=== PATIENT | female | born 1980 | race African-American/Black ===

== ENCOUNTER 2022-03-12 10:07 | Outpatient (RCR) | payer OTHER, SELFPAY ==
--- NOTE | 2022-03-12 13:42 | PTOPEVAL1 ---
Assessment and note entered by Adithya Haile, PT Evaluation Information Assessment Status Evaluation Diagnosis recent acute back strain Onset chart states 01/22/22 patient reports it happened in December, Subjective Information Patient reports she hurt her back at work, [employer]. She felt a pull but was okay and then 3-4 days later she could barely move. At urgent care she was given muscle relaxers that did not work and then saw her primary physician who gave her IBU and another medication she can not remember off the top of her head. She reports she was unable to return to work for over a month, but now can move around for the most part, but will still have catches and pain when she moves unexpectedly or leans over to the L side. She is have trouble sleeping. Switching to her couch from her bed as her mattress is a pillow top and too soft. Reported Pain Level Pain Score 5: Self Report Assessment PT Clinical Summary Mary is a 41 year old female coming into the clinic today with a diagnosis of recent acute back strain. She reports it happened at work. She presents with tenderness and guarding over the L back, pain, and weakness in her core and KEVIN hips. Physical therapy is going to work on loosening the back and pain control with manual therapy and modalities. Education and implementation on walking program and strengthening of core and LE to reduce chance of recurrent back issues. Plan of Care Interventions Electrical Stimulation,Gait Training,Hot Pack/Cold Pack,Manual Therapy,Mechanical Traction,Neuro Re- education,Patient/Caregiver Education,Therapeutic Activities,Therapeutic Exercise,Ultrasound PT Services Indicated Yes Treatment Frequency and 2x/wk for 3 weeks Duration These treatments will address the objective and functional deficits as defined above. The patient will be advanced safely and appropriately in order for the patient to progress towards his/her prior level of function. Additional exercises will be introduced and as well as a comprehensive home exercise program upon discharge, if needed, ?to ensure carryover of functional gains achieved in the clinic. This treatment plan has been reviewed and agreement upon by the patient.
--- NOTE | 2022-03-20 16:20 | PCPTNOTE ---
Patient did not show up for scheduled appointment this date.
--- NOTE | 2022-03-24 11:03 | PCPTNOTE ---
Patient did not show up for scheduled appointment this date. Called and spoke with Pt. She apologized because she forgot about the appointment due to not having a reminder of her appointment today. Reminded Pt of upcoming appointment on 03/26/22 @10:45. Pt stated she would be there. This is Pt's second N/S.
--- NOTE | 2022-03-26 11:13 | PCPTNOTE ---
Patient did not show up for scheduled appointment this date. This is patient's third time not showing up for Physical Therapy session. Patient was called regarding today's missed visit and did not answer.
--- NOTE | 2022-03-30 15:56 | PCPTNOTE ---
Patient did not show up for scheduled appointment this date. Called patient and she states she has been missing her appts because her grandmother is sick and she has been helping her out. Patient was told her next appt is at 8 o'clock and she states she will be there.
--- NOTE | 2022-04-02 08:43 | PTOPDC ---
Assessment and note entered by Adithya Haile, PT Evaluation Information Assessment Status Discharge - Pt Not Presen Diagnosis recent acute back strain Onset chart states 01/22/22 patient reports it happened in December, maybe January Subjective Information Patient reports she hurt her back at work, [employer]. She felt a pull but was okay and then 3-4 days later she could barely move. At urgent care she was given muscle relaxers that did not work and then saw her primary physician who gave her IBU and another medication she can not remember off the top of her head. She reports she was unable to return to work for over a month, but now can move around for the most part, but will still have catches and pain when she moves unexpectedly or leans over to the L side. She is have trouble sleeping. Switching to her couch from her bed as her mattress is a pillow top and too soft. Assessment PT Clinical Summary Patient came in for an initial evaluation on March 12, 2022 and then no showed no called for 5 consecutive appointments. Patient was called numerous time to make sure she knew her schedule and on the 30 of March phone call she told the physical therapist she would for sure by at the one today . Patient discharged per non-participation. Plan of Care PT Services Indicated No
== END 2022-04-08 14:32 | disposition home or self-care (01) ==
LOC: ANHPT 10:07
PROVIDERS: PCP Internal Medicine Gastroenterology; Visit Provider Internal Medicine Gastroenterology
DX: M54.50 Low back pain, unspecified (principal)
CPT/HCPCS: 97110; 97161; 99199

== ENCOUNTER 2024-03-29 14:48 | Outpatient (CLI) | payer OTHER, SELFPAY ==
--- NOTE | ~2024-03-29 | MM_ITS ---
EXAMINATION: MM screening ross BI w edgardo HISTORY: Screening mammogram TECHNIQUE: Craniocaudal and mediolateral oblique 3-D tomosynthesis images were obtained and synthetic 2-D images were generated. CAD analysis was submitted and interpreted. COMPARISON: No prior mammogram is available for comparison at this institution. BREAST PARENCHYMAL COMPOSITION:Not Dense. There are scattered areas of fibroglandular density. FINDINGS: There is a small mass at the outer, lower right breast. No suspicious mass or distortion le ft breast. No suspicious microcalcifications. IMPRESSION: Small lower, outer right breast mass. Spot compression views and ultrasound are recommended for furt her evaluation. BI-RADS Category 0: Incomplete: Needs additional imaging evaluation. Reviewed, dictated and finalized at location . SECTION SUPERVISOR IMPRESSION: Small lower, outer right breast mass. Spot compression views and ultrasound ar e recommended for further evaluation. BI-RADS Category 0: Incomplete: Needs additional imaging evaluation.
== END 2024-03-29 14:49 | disposition home or self-care (01) ==
LOC: ANHIMG 14:51
PROVIDERS: PCP Internal Medicine Gastroenterology; Visit Provider Obstetrics & Gynecology
DX: Z12.31 Encounter for screening mammogram for malignant neoplasm of breast (principal); N63.13 Unspecified lump in the right breast, lower outer quadrant
CPT/HCPCS: 77063; 77067

== ENCOUNTER 2024-12-07 10:01 | Outpatient (CLI) | payer OTHER, SELFPAY ==
--- NOTE | ~2024-12-07 | MMUS_ITS ---
EXAMINATION: MM diagnostic ross RT w edgardo, US breast RT limited INDICATION: 44-year old female; BI-RADS 3, short-term follow-up on probably benign right breast mass. COMPARISON: 06/09/2024 TECHNIQUE: Digital breast tomosynthesis True lateral and spot compression CC and MLO views of the RIG HT breast were obtained with computer-aided detection to assist in interpretation of the study. MAMMOGRAM FINDINGS: There are scattered areas of fibroglandular density. The circumscribed mass of concern in the Inferior right breast is unchanged. No new suspicious mass, architectural distortion of abnormal calcification seen. Ultrasound was performed for further evaluat ion. RIGHT BREAST ULTRASOUND FINDINGS: Targeted evaluation of the area of concern was completed. At 6:00, 4 cm from the nipple a 0.3 x 0.2 x 0.6 cm simple cyst is reidentified and has not significantly changed in the interval. IMPRESSION: Benign RIGHT breast cyst which correlates to mammographic finding is unchanged. No further investigat ion necessary. RECOMMENDATION: Annual screening bilateral mammography in 6 months. BI-RADS 2, BENIGN Reviewed, dictated and finalized at location B. IMPRESSION: Benign RIGHT breast cyst which correlates to mammographic finding is unchanged. No further investigation necessary. RECOMMENDATION: Annual screening bilateral mammography in 6 months. BI-RADS 2, BENIGN
--- OUTSIDE RECORDS SUMMARY | 2024-12-07 10:06 | XMS_ITS | Data Portability ---
Author Organization [place] [facility] [employer], Main Office Address [address] [place] [address] Care Team Providers Care Scarfer Operator Name Role Phone JENNA CAMACHO Primary Care Provider [phone] JENNA CAMACHO Referring Provider Assessment Encounter Date Assessment Date Assessment LastModified by Organization Details LastModified Time 02/24/2023 02/24/2023 42-year-old patient presents today with right knee pain that started about a month ago when she had a fall. Since then she has been experiencing discomfort with daily activities and swelling. She has tried ibuprofen, icing, and resting. She states that it does feel little better since the initial injury, But she experiences swelling after being active during the day. She denies any issues with this knee in the past. Review of systems per patient questionnaire Imaging: X-rays reviewed show no acute bony abnormality, no fracture. Preserved joint spaces throughout. Physical exam: Nonantalgic gait. 1+ effusion. No tenderness with palpitation. Range of motion 0-150 without crepitus. Negative Jasmin's. Stable Cari's with firm endpoint. Stable posterior drawer, varus and valgus stress. Normal patellar mobility. We will start with a course of physical therapy to help stretch and strengthen her knee. We will also order meloxicam for anti-inflammator y therapy. We will see her back in 4-6 weeks to check her progress. Not available 02/24/2023 11:55:55 04/14/2023 04/14/2023 42-year-old patient presents today for follow up of right knee pain that started after she had a fall. At her last appointment we ordered physical therapy and meloxicam. Today she states the knee is doing much better. She has minimal pain in the knee but it still swells occasionally. She takes the meloxicam daily but has not yet started physical therapy. Her first appointment is scheduled for May.20. Physical exam: Nonantalgic gait. Minimal effusion. No tenderness with palpitation. Range of motion 0-150 without crepitus. Negative Jasmin's. Stable Cari's with firm endpoint. Stable posterior drawer, varus and valgus stress. Normal patellar mobility. We will still have her attend the course of physical therapy to help stretch and strengthen her knee. We will also order a refill of her meloxicam. We will see her back in 3 month after the therapy to check her progress. Not available 04/14/2023 15:36:16 Plan of Treatment Reminders Order Date Submit Date Provider Last Modified By Organization Details Last Modified Time Details Appointments None recorded. Lab None recorded. Referral physical therapist referral - [facility] 2022 023 [facility], [address], [place], [address], 4 17:05:49 Procedures None recorded. Surgeries None recorded. Imaging None recorded. Medication Orders Mobic 15 mg tablet 2022 023 [facility], [address] [place] [address], [id number], 3 16:41:13 Mobic 15 mg tablet 2022 023 [facility], [address] [place] [address], [id number], 3 13:01:04 Patient TargetsNo targets recorded. Patient InstructionsNo instructions recorded. Reason for Referral Physical Therapist Referral for Pain of right knee joint [facility]AL AND TREAT Referring Physician: Debby Olivares, Orthopedic Surgery, Encounter Date: 02/24/2023 Results Created Date Observation Date Name Description Value Unit Range Abnormal Flag Note LastModifiedBy Organization Detail LastModifiedTime 02/17/20 23 02/01/2023 XR, knee, 3 view No observ ation record ed. [email or web address] Not Available 07/2022 14:12:20 Result Notes None recorded. Problems Name Problem SNOMED Code Status Onset Date Resolution Date Notes Provider Name and Address Organization Details Recorded Time Pain of right knee joint 928821717831359 Active 2022 Zulema Woodson , ATC L null, [place] [facility] 11:42:00 Problem Notes None recorded. Medical Equipment None Reported. Allergies No known drug allergies Medications Name Sig Start Date Stop Date Status Note LastModified by Organization Details LastModified Time cyclobenzapri ne 10 mg tablet TAKE 1 TABLET BY MOUTH AT BEDTIME NEEDED active Not Available Not Available No t Available prednisone 10 mg tablet TAKE 4 TABLETS BY MOUTH ON DAYS 1-3, THREE TABLETS ON DAYS FOUR TO FIVE, TWO TABLETS DAY SIX AND ONE TABLET DAY SEVEN DIRECTED active Not Available Not Available No t Available azithromycin 250 mg tablet TAKE 2 TABLETS BY MOUTH ON DAY 1, THEN TAKE 1 TABLET DAILY ON DAYS 2-5 active Not Available Not Available No t Available ibuprofen 800 mg tablet TAKE ONE TABLET BY MOUTH THREE TIMES DAILY WITH MEALS active Not Available Not Available No t Available fluconazole 150 mg tablet TAKE ONE TABLET BY MOUTH A SINGLE DOSE active Not Available Not Available No t Available benzonatate 200 mg capsule TAKE ONE CAPSULE BY MOUTH THREE TIMES DAILY NEEDED FOR COUGH active Not Available Not Available No t Available meloxicam 15 mg tablet TAKE ONE TABLET BY MOUTH EVERY DAY active Not Available Not Available No t Available terconazole 0.8 % vaginal cream USE DIRECTED active Not Available Not Available No t Available pantoprazole 40 mg tablet,delaye d release TAKE ONE TABLET BY MOUTH EVERY DAY BEFORE A MEAL FOR STOMACH active Not Available Not Available No t Available montelukast 10 mg tablet TAKE ONE TABLET BY MOUTH EVERY DAY active Not Available Not Available No t Available fluticasone propionate 50 mcg/actuation nasal spray,suspens ion SPRAY TWO PUFFS IN EACH NOSTRIL EVERY DAY active Not Available Not Available No t Available amoxicillin 875 mg-potassium clavulanate 125 mg tablet TAKE ONE TABLET TWICE DAILY UNTIL ALL TAKEN active Not Available Not Available No t Available hydrochloroth iazide 12.5 mg tablet TAKE ONE TABLET BY MOUTH EVERY DAY FOR BLOOD PRESSURE & FLUID RETENTION active Not Available Not Available No t Available Vitals Date Recorded Body height Body mass index (BMI) Body weight Provider Name and Address Organization Details Last Updated DateTime 02/24/2023 162.56 cm 34.3 kg/m2 38234.47 g Zulema Calvertkalpana, ATC L [employer] 02/24/2023 11:40:07 Date Recorded Body height Body mass index (BMI) Body weight Provider Name and Address Organization Details Last Updated DateTime 04/14/2023 162.56 cm 31.8 kg/m2 60845.59 g Sravanthi GonzálesIVAN jade [employer] 04/14/2023 15:17:15 Social History Question Answer Notes LastModified by [employer] Details LastModified Time Tobacco Smoking Status Current Every Day Smoker Zulema Chintan, ATC L null, [employer] 02/24/2023 11:41:24 How Much Tobacco Do You Smoke? 1 PPD Information not available 02/24/2023 Sex: Unknown Functional Status Question Answer Note LastModified by [employer] Details LastModified Time What is your level of alcohol consumption? Occasional Information not available 02/24/2023 Mental Status None recorded. Family History Nothing Reported. Medical History No medical history recorded. Gynecological HistoryNo gynecological history recorded. Obstetrics History GPAL:G 0 P 0 0 0 0 Past Encounters Encounter ID Performer Location Encounter Start Date Encounter Closed Date Diagnosis/Indication Diagnosis SNOMED-CT Code Diagnosis ICD10 Code Diagnosis Note [id number] Idris Bryan MD [facility] [place] [address] [place] [address] 02/24/2023 11:26:52 02/24/2023 11:58:32 Pain of right knee joint 9335871781 94737 M25.437 [id number] Idris Bryan MD [facility] [place] [address] [place] [address] 04/14/2023 15:15:03 04/14/2023 15:31:45 Pain of right knee joint 1173290111 31825 M25.561 Health Concerns Section Related Observation LastModified by Organization Detai ls LastModified Time None Recorded Concern Status LastModified by Organization Details LastModified Time None Recorded Advance Directives Directive None Recorded Payers Insurance Date Sequence Insurance Name Policy Number Policy Butts Covered Member ID Butts Member ID Guarantor Name 07/11/2023 1 [facility] (MEDICAID REPLACEMENT - HMO) [id number] Mary Ramirez [id number] Mary Ramirez [facility] Episode No OBEpisode recorded.
--- OUTSIDE RECORDS SUMMARY | 2024-12-07 10:06 | XMS_ITS | Data Portability ---
Author Organization RDAHA MELODYGonzales Tavarez Address [address] [place] [address] Assessment No assessment recorded. Plan of Treatment Reminders Order Date Submit Date Provider Last Modified By Organization Details Last Modified Time Details Appointments None recorded . Lab CMP, serum or plasma 2023 [facility], [address], [address], [place], [address], 4 08:28:43 lipid panel, serum 2023 024 [facility], [facility] [address], [address], [place], [address], 4 08:28:42 HbA1c (hemoglo bin A1c), blood 2023 024 [facility], [facility] [address], [address], [place], [address], 4 06:25:26 CBC 2023 024 [facility], [address] [employer] [address], [address], [place], [address], 4 08:28:45 urinalys is, dipstick 2022 023 [facility] In-Office Order, Internal Use Only DO Not Attach Compendium DO Not Attach Compendium, Do Not Delete/merge, [id number] 3 12:34:42 Referral physical therapis t referral 2021 022 [facility] (Outpatient [facility] Therapy), [address] [place], [address], 2 08:21:39 Procedures None recorded . Surgeries None recorded . Imaging XR, knee, 3 view [address] ([facility]), [address] [place], [address], 3 11:49:26 Medication Orders hydrochl orothiaz nakia 12.5 mg tablet 2023 024 [facility], [address] [place] [address], [id number], 5 10:08:32 fluticas one propiona te 50 mcg/actu ation nasal spray,tate spension 2022 023 [facility], [address] [place] [address], [id number], 4 16:19:49 monteluk ast 10 mg tablet 2022 023 [facility], [address] [place] [address], [id number], 4 15:21:46 ibuprofe n 800 mg tablet 2022 023 [facility], [address] [place] [address], [id number], 4 15:57:50 ibuprofe n 600 mg tablet 2021 022 [facility], [address] [place] [address], [id number], 4 15:57:42 diazepam 5 mg tablet 2021 022 [facility], [address] [place], [place], [id number], 15:57:32 Patient TargetsNo targets recorded. Patient Instructions Encounter Date Encounter Id Patient Instructions Last Modified By Organization Details Last Modified Time 02/04/2022 [id number] back care and preventing injuries: care instructions [email or web address] Not available 02/04/2022 15:57:19 01/27/2023 [id number] allergies: care instructions [email or web address] Not available 01/27/2023 13:13:46 managing your allergies: care instructions [email or web address] Not available 01/27/2023 13:13:46 02/24/2024 [id number] allergies: care instructions [email or web address] Not available 02/24/2024 17:01:44 A healthy lifestyle: care instructions [email or web address] Not available 02/24/2024 18:01:24 Reason for Referral Physical Therapist Referral for Low back pain Recent acute back strain Referring Physician: Dutch Prakash, Internal Medicine, Encounter Date: 02/04/2022 Results Created Date Observation Date Name Description Value Unit Range Abnormal Flag Note LastModifiedBy Organization Detail LastModifiedTime 02/26/2002/26/2022 LIPID PANEL cholesterol, total 174 mg/dL 100-19 9 Not Available [facility] ([facility]) [address] [place], [address], 02/26/2022 08:16:02 02/26/2002/26/2022 LIPID PANEL triglyceride s 104 mg/dL 0-149 Not Available [facility] ([facility]) [address] [place], [address], 02/26/2022 08:16:02 02/26/2002/26/2022 LIPID PANEL HDL cholesterol 59 mg/dL >39 Not Available [facility] ([facility]) [address] [place], [address], 02/26/2022 08:16:02 02/26/20 22 02/26/2022 LIPID PANEL VLDL cholesterol margarita 19 mg/dL 5-40 Not Available [facility] ([facility]) [address] [facility], [place], [address], 02/26/2022 08:16:02 02/26/20 22 02/26/2022 LIPID PANEL LDL chol calc ([facility]) 96 mg/dL 0-99 Not Available [facility] ([facility]) [address] [place], [address], 02/26/2022 08:16:02 02/26/20 22 02/26/2022 COMP. METAB OLIC PANEL (14) glucose 77 mg/dL 70-99 Ple ase note refer ence inter janice harkins e Not Available [facility] ([facility]) [address] [facility], [place], [address], 02/26/2022 08:16:02 02/26/20 22 02/26/2022 COMP. METAB OLIC PANEL (14) BUN 11 mg/dL 6-20 Not Available [facility] ([facility]) [address] [place], [address], 02/26/2022 08:16:02 02/26/2002/26/2022 COMP. METAB OLIC PANEL (14) creatinine 1.00 mg/dL 0.57-1 .00 Not Available [facility] ([facility]) [address] [place], [address], 02/26/2022 08:16:02 02/26/2002/26/2022 COMP. METAB OLIC PANEL (14) eGFR 73 mL/mi n/1.7 3 >59 Not Available [facility] ([facility]) [address] [place], [address], 02/26/2022 08:16:02 02/26/20 22 02/26/2022 COMP. METAB OLIC PANEL (14) BUN/creatini ne ratio 11 9-23 Not Available [facility] ([facility]) [address] [place], [address], 02/26/2022 08:16:02 02/26/20 22 02/26/2022 COMP. METAB OLIC PANEL (14) sodium 136 mmol/ L 134-14 4 Not Available [facility] ([facility]) [address] [facility], [place], [address], 02/26/2022 08:16:02 02/26/20 22 02/26/2022 COMP. METAB OLIC PANEL (14) potassium 4.0 mmol/ L 3.5-5. 2 Not Available [facility] ([facility]) [address] [facility], [place], [address], 02/26/2022 08:16:02 02/26/2002/26/2022 COMP. METAB OLIC PANEL (14) chloride 98 mmol/ L 96-106 Not Available [facility] ([facility]) [address] [facility], [place], [address], 02/26/2022 08:16:02 02/26/2002/26/2022 COMP. METAB OLIC PANEL (14) carbon dioxide, total 25 mmol/ L 20-29 Not Available [facility] ([facility]) [address] [facility], [place], [address], 02/26/2022 08:16:02 02/26/2002/26/2022 COMP. METAB OLIC PANEL (14) calcium 9.4 mg/dL 8.7-10 .2 Not Available [facility] ([facility]) [address] [place], [address], 02/26/2022 08:16:02 02/26/2002/26/2022 COMP. METAB OLIC PANEL (14) protein, total 8.2 g/dL 6.0-8. 5 Not Available [facility] ([facility]) [address] [place], [address], 02/26/2022 08:16:02 02/26/2007 0302/26/2022 COMP. METAB OLIC PANEL (14) albumin 3.9 g/dL 3.8-4. 8 Not Available [facility] ([facility]) [address] [place], [address], 02/26/2022 08:16:02 02/26/20 22 02/26/2022 COMP. METAB OLIC PANEL (14) globulin, total 4.3 g/dL 1.5-4. 5 Not Available [facility] ([facility]) [address] [facility], [place], [address], 02/26/2022 08:16:02 02/26/2002/26/2022 COMP. METAB OLIC PANEL (14) A/G ratio 0.9 1.2-2. 2 below low normal Not Available [facility] ([facility]) [address] [place], [address], 02/26/2022 08:16:02 02/26/20 22 02/26/2022 COMP. METAB OLIC PANEL (14) bilirubin, total 0.4 mg/dL 0.0-1. 2 Not Available [facility] ([facility]) [address] [place], [address], 02/26/2022 08:16:02 02/26/20 22 02/26/2022 COMP. METAB OLIC PANEL (14) alkaline phosphatase 59 IU/L 44-121 Not Available [facility] ([facility]) [address] [place], [address], 02/26/2022 08:16:02 02/26/20 22 02/26/2022 COMP. METAB OLIC PANEL (14) AST (SGOT) 22 IU/L 0-40 Not Available [facility] ([facility]) [address] [place], [address], 02/26/2022 08:16:02 02/26/20 22 02/26/2022 COMP. METAB OLIC PANEL (14) ALT (SGPT) 16 IU/L 0-32 Not Available [facility] ([facility]) [address] [facility], [place], [address], 02/26/2022 08:16:02 02/26/2002/26/2022 CBC, PLATE LET, NO DIFFE RENTI AL WBC 6.3 x10e3 /uL 3.4-10 .8 Not Available [facility] ([facility]) [address] [facility], [place], [address], 02/26/2022 08:16:03 02/26/2002/26/2022 CBC, PLATE LET, NO DIFFE RENTI AL RBC 4.28 x10e6 /uL 3.77-5 .28 Not Available [facility] ([facility]) [address] [facility], [place], [address], 02/26/2022 08:16:03 02/26/2002/26/2022 CBC, PLATE LET, NO DIFFE RENTI AL hemoglobin 12.4 g/dL 11.1-1 5.9 Not Available [facility] ([facility]) [address] [facility], [place], [address], 02/26/2022 08:16:03 02/26/2002/26/2022 CBC, PLATE LET, NO DIFFE RENTI AL hematocrit 38.3 % 34.0-4 6.6 Not Available [facility] ([facility]) [address] [facility], [place], [address], 02/26/2022 08:16:03 02/26/2002/26/2022 CBC, PLATE LET, NO DIFFE RENTI AL MCV 90 fL 79-97 Not Available [facility] ([facility]) [address] [place], [address], 02/26/2022 08:16:03 02/26/2002/26/2022 CBC, PLATE LET, NO DIFFE RENTI AL MCH 29.0 pg 26.6-3 3.0 Not Available [facility] ([facility]) [address] [facility], [place], [address], 02/26/2022 08:16:03 02/26/2002/26/2022 CBC, PLATE LET, NO DIFFE RENTI AL MCHC 32.4 g/dL 31.5-3 5.7 Not Available [facility] ([facility]) [address] [facility], [place], [address], 02/26/2022 08:16:03 02/26/2002/26/2022 CBC, PLATE LET, NO DIFFE RENTI AL RDW 13.1 % 11.7-1 5.4 Not Available [facility] ([facility]) [address] [facility], [place], [address], 02/26/2022 08:16:03 02/26/2002/26/2022 CBC, PLATE LET, NO DIFFE RENTI AL platelets 406 x10e3 /uL 150-45 0 Not Available [facility] ([facility]) [address] [facility], [place], [address], 02/26/2022 08:16:03 02/26/2002/26/2022 VITAM IN D, 25-HY DROXY vitamin D, 25-hydroxy 37.7 NG/mL 30.0-1 00.0 Vitam in D defic iency has been defin ed by the Insti tute of Medic ine and an Endoc rine Socie ty pract ice guide line as a level of serum 25-OH vitam in D less than 20 ng/mL (1,2) . The Endoc rine Socie ty [facility] e vitam in D insuf ficie ncy as a level betwe en 21 and 29 ng/mL (2). 1. IOM (Inst itute of Medic ine). 2010. Dieta ry refer ence intak es for calci um and D. Gustabo elias [place]: The [facility] Press . 2. Holic k [place], [place], Pili off-F willard i MCCRARY, et al. Evalu ation , treat ment, and preve ntion of vitam in D defic iency : an Endoc rine Socie ty clini margarita pract ice guide line. JCEM. 2010; 96(7) :1911 -30. Not Available [facility] ([facility]) [address], [place], [address], 02/26/2022 08:16:04 03/03/2003/03/2023 urina lysis , dipst ick Leukocytes Negati ve Not Available In-Office Order Internal Use Only DO Not Attach Compendium DO Not Attach Compendium, Do Not Delete/merge, 03/03/2023 12:02:00 03/03/2003/03/2023 urina lysis , dipst ick Nitrite negati ve Not Available In-Office Order Internal Use Only DO Not Attach Compendium DO Not Attach Compendium, Do Not Delete/merge, 03/03/2023 12:02:00 03/03/2003/03/2023 urina lysis , dipst ick Urobilinogen .2 Not Available In-Of fice Order Internal Use Only DO Not Attach Compendium DO Not Attach Compendium, Do Not Delete/merge, 03/03/2023 12:02:00 03/03/2003/03/2023 urina lysis , dipst ick Protein 100 Not Available In-Office Order Internal Use Only DO Not Attach Compendium DO Not Attach Compendium, Do Not Delete/merge, [id number] 03/03/2023 12:02:00 03/03/2003/03/2023 urina lysis , dipst ick pH 5.5 Not Available In-Office Order Internal Use Only DO Not Attach Compendium DO Not Attach Compendium, Do Not Delete/merge, [id number] 03/03/2023 12:02:00 03/03/2003/03/2023 urina lysis , dipst ick Blood Non-He molyze d: Trace Not Available In-Office Order Internal Use Only DO Not Attach Compendium DO Not Attach Compendium, Do Not Delete/merge, [id number] 03/03/2023 12:02:00 03/03/2003/03/2023 urina lysis , dipst ick Specific [place] 1.025 Not Available In-Off ice Order Internal Use Only DO Not Attach Compendium DO Not Attach Compendium, Do Not Delete/merge, [id number] 03/03/2023 12:02:00 03/03/2003/03/2023 urina lysis , dipst ick Ketone Negati ve Not Available In-Office Order Internal Use Only DO Not Attach Compendium DO Not Attach Compendium, Do Not Delete/merge, [id number] 03/03/2023 12:02:00 03/03/2003/03/2023 urina lysis , dipst ick Bilirubin Negati ve Not Available In-Office Order Internal Use Only DO Not Attach Compendium DO Not Attach Compendium, Do Not Delete/merge, [id number] 03/03/2023 12:02:00 03/03/2003/03/2023 urina lysis , dipst ick Glucose Negati ve Not Available In-Office Order Internal Use Only DO Not Attach Compendium DO Not Attach Compendium, Do Not Delete/merge, [id number] 03/03/2023 12:02:00 03/03/2003/03/2023 urina lysis , dipst ick Appearance Slight ly Cloudy Not Available In-Office Order Internal Use Only DO Not Attach Compendium DO Not Attach Compendium, Do Not Delete/merge, [id number] 03/03/2023 12:02:00 03/03/2003/03/2023 urina lysis , dipst ick Color Yellow Not Available In-Office Order Internal Use Only DO Not Attach Compendium DO Not Attach Compendium, Do Not Delete/merge, [id number] 03/03/2023 12:02:00 03/30/20 24 03/31/2024 HEMOG LOBIN A1C hemoglobin A1C 5.6 % 4.8-5. 6 Predi abete s: 5.7 - 6.4 Diabe yuliet: >6.4 Glyce malathi contr ol for adult s with diabe yuliet: <7.0 Not Available [facility] ([facility]) [address] [facility], [place], [address], 03/31/2024 06:25:26 03/30/20 24 03/31/2024 LIPID PANEL cholesterol, total 169 mg/dL 100-19 9 Not Available [facility] ([facility]) [address] [place], [address], 03/31/2024 08:28:42 03/30/20 24 03/31/2024 LIPID PANEL triglyceride s 114 mg/dL 0-149 Not Available [facility] ([facility]) [address] [place], [address], 03/31/2024 08:28:42 03/30/20 24 03/31/2024 LIPID PANEL HDL cholesterol 54 mg/dL >39 Not Available [facility] ([facility]) [address] [place], [address], 03/31/2024 08:28:42 03/30/20 24 03/31/2024 LIPID PANEL VLDL cholesterol margarita 20 mg/dL 5-40 Not Available [facility] ([facility]) [address] [place], [address], 03/31/2024 08:28:42 03/30/20 24 03/31/2024 LIPID PANEL LDL chol calc ([facility]) 95 mg/dL 0-99 Not Available [facility] ([facility]) [address] [place], [address], 03/31/2024 08:28:42 03/30/20 24 03/31/2024 COMP. METAB OLIC PANEL (14) glucose 59 mg/dL 70-99 below low normal Not Available [facility] ([facility]) [address] [place], [address], 03/31/2024 08:28:43 03/30/20 24 03/31/2024 COMP. METAB OLIC PANEL (14) BUN 18 mg/dL 6-24 Not Available [facility] ([facility]) [address], [place], [address], 03/31/2024 08:28:43 03/30/20 24 03/31/2024 COMP. METAB OLIC PANEL (14) creatinine 0.82 mg/dL 0.57-1 .00 Not Available [facility] ([facility]) [address] [place], [address], 03/31/2024 08:28:43 03/30/20 24 03/31/2024 COMP. METAB OLIC PANEL (14) eGFR 92 mL/mi n/1.7 3 >59 Not Available [facility] ([facility]) [address] [place], [address], 03/31/2024 08:28:43 03/30/20 24 03/31/2024 COMP. METAB OLIC PANEL (14) BUN/creatini ne ratio 22 9-23 Not Available [facility] ([facility]) [address] [facility], [place], [address], 03/31/2024 08:28:43 03/30/20 24 03/31/2024 COMP. METAB OLIC PANEL (14) sodium 137 mmol/ L 134-14 4 Not Available [facility] ([facility]) [address] [place], [address], 03/31/2024 08:28:43 03/30/20 24 03/31/2024 COMP. METAB OLIC PANEL (14) potassium 4.1 mmol/ L 3.5-5. 2 Not Available [facility] ([facility]) [address] [place], [address], 03/31/2024 08:28:43 03/30/20 24 03/31/2024 COMP. METAB OLIC PANEL (14) chloride 100 mmol/ L 96-106 Not Available [facility] ([facility]) [address] [place], [address], 03/31/2024 08:28:43 03/30/20 24 03/31/2024 COMP. METAB OLIC PANEL (14) carbon dioxide, total 24 mmol/ L Not Available [facility] ([facility]) [address] [place], [address], 03/31/2024 08:28:43 03/30/20 24 03/31/2024 COMP. METAB OLIC PANEL (14) calcium 9.3 mg/dL 8.7-10 .2 Not Available [facility] ([facility]) [address] [place], [address], 03/31/2024 08:28:43 03/30/2003/31/2024 COMP. METAB OLIC PANEL (14) protein, total 8.0 g/dL 6.0-8. 5 Not Available [facility] ([facility]) [address] [place], [address], 03/31/2024 08:28:43 03/30/20 24 03/31/2024 COMP. METAB OLIC PANEL (14) albumin 4.1 g/dL 3.9-4. 9 Not Available [facility] ([facility]) [address] [place], [address], 03/31/2024 08:28:43 03/30/20 24 03/31/2024 COMP. METAB OLIC PANEL (14) globulin, total 3.9 g/dL 1.5-4. 5 Not Available [facility] ([facility]) [address] [place], [address], 03/31/2024 08:28:43 03/30/20 24 03/31/2024 COMP. METAB OLIC PANEL (14) bilirubin, total 0.2 mg/dL 0.0-1. 2 Not Available [facility] ([facility]) [address] [place], [address], 03/31/2024 08:28:43 03/30/20 24 03/31/2024 COMP. METAB OLIC PANEL (14) alkaline phosphatase 69 IU/L 44-121 Not Available [facility] ([facility]) [address] [facility], [place], [address], 03/31/2024 08:28:43 03/30/20 24 03/31/2024 COMP. METAB OLIC PANEL (14) AST (SGOT) 23 IU/L 0-40 Not Available [facility] ([facility]) [address] [facility], [place], [address], 03/31/2024 08:28:43 03/30/20 24 03/31/2024 COMP. METAB OLIC PANEL (14) ALT (SGPT) 26 IU/L 0-32 Not Available [facility] ([facility]) [address] [facility], [place], [address], 03/31/2024 08:28:43 03/30/20 24 03/31/2024 CBC, PLATE LET, NO DIFFE RENTI AL WBC 5.6 x10e3 /uL 3.4-10 .8 Not Available [facility] ([facility]) [address] [facility], [place], [address], 03/31/2024 08:28:45 03/30/20 24 03/31/2024 CBC, PLATE LET, NO DIFFE RENTI AL RBC 4.16 x10e6 /uL 3.77-5 .28 Not Available [facility] ([facility]) [address] [facility], [place], [address], 03/31/2024 08:28:45 03/30/20 24 03/31/2024 CBC, PLATE LET, NO DIFFE RENTI AL hemoglobin 12.5 g/dL 11.1-1 5.9 Not Available [facility] ([facility]) [address] [facility], [place], [address], 03/31/2024 08:28:45 11/14/03/31/2024 CBC, PLATE LET, NO DIFFE RENTI AL hematocrit 38.0 % 34.0-4 6.6 Not Available [facility] ([facility]) [address] [facility], [place], [address], 03/31/2024 08:28:45 03/30/20 24 03/31/2024 CBC, PLATE LET, NO DIFFE RENTI AL MCV 91 fL 79-97 Not Available [facility] ([facility]) [address] [facility], [place], [address], 03/31/2024 08:28:45 03/30/2003/31/2024 CBC, PLATE LET, NO DIFFE RENTI AL MCH 30.0 pg 26.6-3 3.0 Not Available [facility] ([facility]) [address] [facility], [place], [address], 03/31/2024 08:28:45 03/30/2003/31/2024 CBC, PLATE LET, NO DIFFE RENTI AL MCHC 32.9 g/dL 31.5-3 5.7 Not Available [facility] ([facility]) [address] [facility], [place], [address], 03/31/2024 08:28:45 03/30/20 24 03/31/2024 CBC, PLATE LET, NO DIFFE RENTI AL RDW 12.5 % 11.7-1 5.4 Not Available [facility] ([facility]) [address] [facility], [place], [address], 03/31/2024 08:28:45 03/30/20 24 03/31/2024 CBC, PLATE LET, NO DIFFE RENTI AL platelets 370 x10e3 /uL 150-45 0 Not Available [facility] ([facility]) [address] [facility], [place], [address], 03/31/2024 08:28:45 02/02/20 23 02/01/2023 XR, knee, 3 view No observ ation record ed. [email or web address] [facility] [address], [place], [address], 02/11/2023 18:15:54 03/30/20 24 03/29/2024 MAMMO , scree delta, digit al, bilat eral No observ ation record ed. [facility] [address], [place], [address], 03/31/2024 09:47:27 06/09/19 25 06/09/2024 MAMMO , scree delta, bilat eral No observ ation record ed. [facility] [address], [place], [address], 06/21/2024 17:56:36 Result Notes None recorded. Problems Name Problem SNOMED Code Status Onset Date Resolution Date Notes Provider Name and Address Organization Details Recorded Time Essential hypertensi on 55774989 Active 2020 Not Available [facility] 4 01:28:17 Gastroesop hageal reflux disease 849247048 Active 2020 Not Available [facility] 4 01:28:17 Overweight 386579371 Completed 202010/29/2021 Dutch Prakash MD Attn: Accounting ,[address] [facility], [place], [address] , [facility] 2 11:02:48 Vitamin D below reference range 067238443 Active 2020 Not Available [facility] 4 01:28:16 Obese 384458271 Completed 202101/27/2023 Dutch Prakash MD Attn: Accounting ,[address] [facility], [place], [address] , [place] [facility] 3 13:03:33 Strain of back muscle 125600531 Active 2021 Not Available [facility] 4 01:28:17 Low back pain 194130835 Active 2021 Not Available [facility] 4 01:28:17 Cough 26428949 Active 2022 Not Available [facility] 4 01:28:17 Swelling of knee joint 487608468 Active 2022 Right Not Available [facility] 4 01:28:17 Allergic rhinitis 43346367 Active 2022 Not Available [facility] 4 01:28:17 Nasal congestion 52577889 Active 2022 Not Available [facility] 4 01:28:17 Physical examinatio n 9498801 Active 2022 Not Available [facility] 4 01:28:17 Adult health examinatio n Active 2023 Dutch Prakash MD Attn: Accounting ,[address] [place], [address] , [place] [facility] 17:00:34 Problem Notes None recorded. Medical Equipment None Reported. Allergies No known drug allergies Medications Name Sig Start Date Stop Date Status Note LastModified by Organization Details LastModified Time cyclobenzap rine 10 mg tablet TAKE 1 TABLET BY MOUTH AT BEDTIME NEEDED 02/23 completed Not Available Not Available Not Available amoxicillin 500 mg capsule active Not Available Not Available Not Available prednisone 10 mg tablet TAKE 4 TABLETS BY MOUTH ON DAYS 1-3, THREE TABLETS ON DAYS FOUR TO FIVE, TWO TABLETS DAY SIX AND ONE TABLET DAY SEVEN DIRECTED 02/23 completed Not Available Not Available Not Available azithromyci n 250 mg tablet TAKE 2 TABLETS BY MOUTH ON DAY 1, THEN TAKE 1 TABLET DAILY ON DAYS 2-5 02/23 completed Not Available Not Available Not Available ibuprofen 800 mg tablet TAKE ONE TABLET BY MOUTH THREE TIMES DAILY WITH MEALS 02/23 completed Not Available Not Available Not Available fluconazole 150 mg tablet TAKE 1 TABLET BY MOUTH DIRECTED 02/23 completed Not Available Not Available Not Available benzonatate 200 mg capsule TAKE ONE CAPSULE BY MOUTH THREE TIMES DAILY NEEDED FOR COUGH 02/23 completed Not Available Not Available Not Available meloxicam 15 mg tablet TAKE ONE TABLET BY MOUTH EVERY DAY 02/23 completed Not Available Not Available Not Available terconazole 0.8 % vaginal cream USE DIRECTED 02/23 completed Not Available Not Available Not Available metronidazo le 500 mg tablet TAKE ONE TABLET BY MOUTH TWICE DAILY FOR 7 DAYS 02/23 completed Not Available Not Available Not Available pantoprazol e 40 mg tablet,wen yed release TAKE ONE TABLET BY MOUTH EVERY DAY BEFORE A MEAL FOR STOMACH active Not Available Not Available No t Available montelukast 10 mg tablet TAKE ONE TABLET BY MOUTH AT BEDTIME FOR BREATHING 2023 active Not Available Not Available Not Avai lable ibuprofen 600 mg tablet TAKE ONE TABLET BY MOUTH THREE TIMES DAILY WITH MEALS FOR PAIN 02/23 completed Not Available Not Available Not Available fluticasone propionate 50 mcg/actuati on nasal spray,suspe nsion SPRAY TWO PUFFS IN EACH NOSTRIL EVERY DAY 02/23 completed Not Available Not Available Not Available diazepam 5 mg tablet TAKE ONE TABLET BY MOUTH TWICE DAILY NEEDED 02/23 completed Not Available Not Available Not Available amoxicillin 875 mg-potassiu m clavulanate 125 mg tablet TAKE ONE TABLET TWICE DAILY UNTIL ALL TAKEN 02/23 completed Not Available Not Available Not Available hydrochloro thiazide 12.5 mg tablet TAKE 1 TABLET BY MOUTH EVERY DAY FOR BLOOD PRESSURE AND FLUID RETENTION 2023 active Not Available Not Available Not Avai lable cholecalcif cesia (vitamin D3) 50 mcg (2,000 unit) capsule Take 1 capsule every week by oral route. 01/22 completed Not Available Not Available Not Available Vitals Date Recorded Body height Heart rate Body temperature Oxygen saturation Oxygen saturation in Arterial blood by Pulse oximetry Body mass index (BMI) Body weight Systolic And Diastolic Provider Name and Address Organization Details Last Updated DateTime 2 162.56 cm 85 /min 98.1 [degF] 98 % 98 % 36.4 kg/m2 07056.5 8 g 106/74 mm[Hg] Deborah Riley MA [place] [facility] 2 12:50:03 Date Recorded Body height Body mass index (BMI) Body weight Heart rate Oxygen saturation Oxygen saturation in Arterial blood by Pulse oximetry Systolic And Diastolic Provider Name and Address Organization Details Last Updated DateTime 3 162.56 cm 35.5 kg/m2 41259.6 2 g 85 /min 100 % 100 % 130/80 mm[Hg] Miladys Sun MA [facility] 3 12:45:01 Date Recorded Body height Body mass index (BMI) Body weight Body temperature Heart rate Oxygen saturation Oxygen saturation in Arterial blood by Pulse oximetry Systolic And Diastolic Provider Name and Address Organization Details Last Updated DateTime 2 162.56 cm 17.9 kg/m2 02948.6 1 g 98.1 [degF] 80 /min 98 % 98 % 110/78 mm[Hg] Deborah Riley MA [facility] 2 15:34:18 Date Recorded Body height Body mass index (BMI) Body weight Heart rate Oxygen saturation Oxygen saturation in Arterial blood by Pulse oximetry Systolic And Diastolic Provider Name and Address Organization Details Last Updated DateTime 4 162.56 cm 33.3 kg/m2 59338.9 2 g 76 /min 97 % 97 % 129/90 mm[Hg] Sosa Hebert MA [facility] 4 16:29:13 Date Recorded Body height Body mass index (BMI) Body weight Oxygen saturation Oxygen saturation in Arterial blood by Pulse oximetry Heart rate Systolic And Diastolic Provider Name and Address Organization Details Last Updated DateTime 3 162.56 cm 35 kg/m2 87280.8 4 g 99 % 99 % 76 /min 126/78 mm[Hg] Audrey Hudson MA [facility] 3 11:51:50 Social History Question Answer Notes LastModified by Organizat ion Details LastModified Time Tobacco Smoking Status Current Some Day Smoker Socially Deborah Riley MA null, [facility] 09/19/2020 11:36:23 Are You Blind Or Do You Have Difficulty Seeing? No Information not available 02/24/2024 What Is Your Level Of Caffeine Consumption? Occasional Information not available 02/24/2024 Are You Deaf Or Do You Have Serious Difficulty Hearing? No Information not available 02/24/2024 What Type Of Diet Are You Following? REGULAR Information not available 02/24/2024 What Was The Date Of Your Most Recent Tobacco Screening? 02/24/2024 Information not available 02/24/2024 Do You Use Your Seat Belt Or Car Seat Routinely? Yes Information not available 02/24/2024 Has Tobacco Cessation Counseling Been Provided? Yes [email or web address] Information not available 09/19/2020 On What Date Was Tobacco Cessation Counseling Provided? 02/24/2024 Information not available 02/24/2024 Sex: Female Functional Status Question Answer Note LastModified by Organization D etails LastModified Time What is your level of alcohol consumption? None Information not available 02/24/2024 Are you able to care for yourself? Yes Information n ot available 02/24/2024 Mental Status Question Answer Note LastModified by Organization D etails LastModified Time Do you feel stressed (tense, restless, nervous, or anxious, or unable to sleep at night)? [id number] Information not available 02/24/2024 Family History Relationship Description Onset Age of this Age Resolved Age Notes LastModified by Organization Details LastModified Time Mother Hypertensive disorder [email or web address] Not available 2020 11:35:59 Mother Hypercholest erolemia [email or web address] Not available 2020 11:36:09 Father Hypertensive disorder [email or web address] Not available 2020 11:35:59 Medical History Condition Response Coronary Artery Disease N Other N High Blood Pressure Y Atrial Fibrillation N Kidney or Bladder Problems N Thyroid Problems N GI Problems N Depression N COPD N Blood Clots N Have you had a mammogram in the last yea r? N Skin Problems N Anemia N Heart Attack ([place]) N Anxiety Disorder N Diabetes N Muscle, Joint, or Bone Problems N Seizures/Epilepsy N Have you had a colonoscopy in the last 1 0 years? N Acid Reflux (GERD) Y Cancer N Stroke N Asthma N Allergies N Have you had a PSA blood test in the las t year? N High Cholesterol N Hepatitis N Liver Disease N Headaches N Heart Failure N Osteoporosis N Gynecological HistoryNo gynecological history recorded. Obstetrics History GPAL:G 0 P 0 0 0 0 Immunizations Vaccine Type Date Status Note Provider Nam e and Address Organization Details Recorded Time MMR 3 completed Not Available [facility] 06/17/2023 01:28:17 MMR 5 completed Not Available [facility] 06/17/2023 01:28:17 COVID-19, mRNA, LNP-S, PF, 30 mcg/0.3 mL dose 1 completed Not Available [facility] 06/17/2023 01:28:17 COVID-19, mRNA, LNP-S, PF, 30 mcg/0.3 mL dose 1 completed Not Available [facility] 06/17/2023 01:28:17 DTP 7 completed Not Available [facility] 06/17/2023 01:28:17 DTP 3 completed Not Available [facility] 06/17/2023 01:28:17 DTP 5 completed Not Available [facility] 06/17/2023 01:28:17 DTP 3 completed Not Available [facility] 06/17/2023 01:28:17 OPV, trivalent 7 completed Not Available [facility] 06/17/2023 01:28:17 OPV, trivalent 3 completed Not Available [facility] 06/17/2023 01:28:17 OPV, trivalent 3 completed Not Available [facility] 06/17/2023 01:28:17 OPV, trivalent 5 completed Not Available [facility] 06/17/2023 01:28:17 OPV, trivalent 3 completed Not Available [facility] 06/17/2023 01:28:17 Influenza, split virus, trivalent, PF 7 completed Not Available [facility] 06/17/2023 01:28:17 Td (adult), 2 Lf tetanus toxoid, preservative free, adsorbed 3 completed Not Available [facility] 06/17/2023 01:28:17 Past Encounters Encounter ID Performer Location Encounter Start Date Encounter Closed Date Diagnosis/Indication Diagnosis SNOMED-CT Code Diagnosis ICD10 Code Diagnosis Note [id number] MD Anderson Nathan (Adult Med) [address] [place] [address] 09/19/2020 11:00:38 09/21/2020 17:32:12 Essential hypertension 12660023 I10 Gastroesop hageal reflux disease 461070161 K21.9 [id number] MD Anderson Nathan (Adult Med) [address] [place] [id number] 10/29/2021 10:18:00 10/30/2021 10:36:58 Vitamin D below reference range 309138769 E55.9 Essential hypertension 60033875 I10 Gastroesop hageal reflux disease 488363622 K21.9 [id number] MD Anderson Nathan (Adult Med) [address] [place] [id number] 01/22/2022 11:58:45 01/23/2022 14:37:50 Strain of back muscle 577844527 S39.012D Demonstrat ed exercises for back strengthen ing [id number] MD Anderson Nathan (Adult Med) [address] [place] [id number] 02/04/2022 15:15:56 02/05/2022 11:16:31 Low back pain 263336058 M54.50 Cont conservati ve management [id number] MD Anderson Nathan (Adult Med) [address] [place] [id number] 01/27/2023 12:32:31 02/02/2023 11:49:25 Swelling of knee joint 694747997 M25.469 Allergic rhinitis 405992 04 J30.9 Nasal congestion 8617457 0 R09.81 [id number] MD Anderson Nathan (Adult Med) [address] [place] [id number] 03/03/2023 11:28:58 03/11/2023 12:40:09 Physical examination 2639316 Z04.9 [id number] MD Anderson Nathan (Adult Med) [address] [place] [id number] 02/24/2024 15:47:55 03/07/2024 15:52:28 Obesity 218336456 E66.9 Essential hypertension 79761039 I10 Adult heal th examination 415308177 Z00.00 Allergic rhinitis 476748 04 J30.9 Nasal congestion 8759652 0 R09.81 Health Concerns Section Related Observation LastModified by Organization Detai ls LastModified Time None Recorded Concern Status LastModified by Organization Details LastModified Time None Recorded Advance Directives Directive None Recorded Payers Insurance Date Sequence Insurance Name Policy Number Policy Butts Covered Member ID Butts Member ID Guarantor Name 11/12/2020 SLIDING FEE SCHEDULE - DISCOUNT Mary Claudior 03/07/2024 1 [facility] - DOS ON OR AFTER 20 (MEDICAID REPLACEMENT - HMO) Mary Ericksonrar [id number] Jose Miguelmichelleruben Ericksonrar 10/30/2021 1 *SELF PAY* Sh zhanna Ericksonrar 02/24/2024 1 [facility] (MEDICAID REPLACEMENT - HMO) [id number] Jose Miguelmichelleruben Ericksonrar [id number] Arletteruben Ericksonrar Notes Date Note Type Note Provider Name and Address Organization Details Recorded Time 01/22/2022 text/html Has had musculoskletal pain for the past two weeks. Dutch Prakash MD Attn: Accounting[address] [facility], [place], [address], [facility] 01/22/2022 13:30:15 02/04/2022 text/html Feels better but still with moderate pain. Still unable to get back to regular duties Duthc Prakash MD Attn: Accounting[address] [facility], [place], [address], [place] [facility] 02/04/2022 16:06:14 01/27/2023 text/html Pain in her right knee for the past two months after strenuous walk. Fell one week ago and developed swelling four days ago. Has nasal congestion and sneezing. Dutch Praaksh MD Attn: Accounting[address] [facility], [place], [address], [place] [facility] 01/27/2023 13:15:16 03/03/2023 text/html Needs a PE for her job Dutch Prakash MD Attn: Accounting[address] [facility], [place], [address], [place] [facility] 03/03/2023 12:28:42 02/24/2024 text/html Here for routine evaluation. 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
--- OUTSIDE RECORDS SUMMARY | 2024-12-07 10:06 | XMS_ITS | Patient Health Record ---
Author Organization [facility] As [employer] [facility] Address [address] [facility] [address] [place] [address] Care Team Providers Care Ore Grader Name Role Phone Ivonne Bond Unavailable [phone] Reason For Referral No Information Plan Of Treatment No Information Insurance Providers Payer Name Payer Address Payer Phone Subscriber Number Group Number Insured Name Patient Relationship to Insured Coverage Start Date Coverage End Date [facility] [address] [place] [address] [id number] LINDA MUÑOZ Self - patient is the insured
--- OUTSIDE RECORDS SUMMARY | 2024-12-07 10:06 | XMS_ITS | Clinical Summary ---
Author Organization [facility] Address [address] [place] [address] Care Team Providers Care Formula Maker Name Role Phone Soco Renteria MD Primary Care Provider + Source Comments [facility],non-owned Affiliates and Associated Physician Practices is amultiple site organization consisting of ambulatory clinics and hospital sitesin [place]. This disclosure is being madepursuant to the Care Everywhere program and may not contain all information available regarding this patient. Last updated 18.[facility] [employer] Allergies No known active allergies Medications * Be aware that medications may not be up to date on this document. Alwaysverify current medications with the patient. HYDROCHLOROTHIAZ CHEL PO Active benzonatate (TESSALON) 100 MG capsuleIndicatio ns:Cough Take 1 capsule by mouth 3 times daily as needed for Cough Reasons: Cough 30 capsule 8 Active albuterol HFA (PROVENTIL;SYED JOSH;PROAIR) 108 (90 BASE) MCG/ACT inhalerIndicatio ns:Acute bronchitis, unspecified organism Inhale 2 puffs by mouth every 6 hours as needed for Shortness of Breath 1 Inhaler 8 Active Social History Tobacco Use Types Packs/Day Years Used Date Smoking Tobacco: Some Days Smokeless Tobacco: Never Comments Unknown Sex and Gender Information Value Date Recorded Sex Assigned at Not on file Legal Sex Female 3:19 PM SCRAP CARRIER Gender Identity Not on file Sexual Orientation Not on file Last Filed Vital Signs Vital Sign Reading Time Taken Comments Blood Pressure 128/86 06/20/2017 10:14 AM SCRAP CARRIER Pulse 86 06/20/2017 10:14 AM SCRAP CARRIER Temperature 37.2 C (99 F) 06/20/2017 10:14 AM SCRAP CARRIER Respiratory Rate 16 06/20/2017 10:14 AM SCRAP CARRIER Oxygen Saturation 99% 06/20/2017 10:14 AM SCRAP CARRIER Inhaled Oxygen Concentration - - Weight 82.6 kg (182 lb) 06/20/2017 10:14 AM SCRAP CARRIER Height 162.6 cm (5' 4) 06/20/2017 10:14 AM SCRAP CARRIER Body Mass Index 31.24 06/20/2017 10:14 AM SCRAP CARRIER Plan of Treatment Health Maintenance Due Date Last Done Comments LIPID TESTING 1982 MAMMOGRAM 1982 HIV SCREENING 1997 HEPATITIS C SCREENING 09/15/2000 DTAP/TDAP/TD VACCINES (1 - Tdap) 2001 HEPATITIS B VACCINE (1 of 3 - 19+ 3-dose series) 2001 HPV VACCINE (1 - 3-dose SCDM series) 2009 COVID-19 VACCINE (1 - 2023-2 5 season) 2024 DEPRESSION SCREENING 05/17/2024 INFLUENZA VACCINE (#1) 2025 ZOSTER VACCINE (1 of 2) 2032 HIB VACCINE Aged Out No longer eligi ble based on patient's age to complete this topic MENINGOCOCCAL (Group B) VACC INE SHARED DECISION-MAKING Aged Out No longer eligibl e based on patient's age to complete this topic MENINGOCOCCAL GROUPS A/C/Y/W VACCINE Aged Out No longer eligible b ased on patient's age to complete this topic PNEUMOCOCCAL VACCINE Aged Out No long er eligible based on patient's age to complete this topic Insurance IVAN Care Teams Formula Maker Relationship Specialty Start Date End Date Soco Renteria MD [address] [place] [address] PCP - General Family Medicine 06/20/17
== END 2024-12-07 10:02 | disposition home or self-care (01) ==
PROVIDERS: PCP Internal Medicine Gastroenterology; Visit Provider Obstetrics & Gynecology
DX: R92.8 Other abnormal and inconclusive findings on diagnostic imaging of breast (principal); N60.01 Solitary cyst of right breast
CPT/HCPCS: 76642; 77061; 77065; G0279

== ENCOUNTER 2025-01-04 08:42 | Emergency (ER) | payer OTHER, SELFPAY ==
--- NOTE | ~2025-01-04 | XR_ITS ---
EXAMINATION: XR foot RT min 3V DATE: 01/04/2025 09:40 INDICATION: Right foot pain after stepping on a safety pin TECHNIQUE: Dorsoplantar, two oblique and lateral views of the right foot were obtained. COMPARISON: None. FINDINGS: 35 degree hallux valgus with likely secondary mild cystic change at the medial head of the first metatarsal. Alignment is otherwise normal. No fractures. Joint spaces are normal throughout. No periosteal reaction or evident ostial lysis. No right ankle joint effusion. No soft tissue gas or radiopaque foreign bodies. IMPRESSION: 1. No acute osseous abnormality or radiopaque foreign body. 2. Bunion with 35 degree hallux valgus and mild cystic change at the medial head of the first metatarsal. Reviewed, dictated and finalized at location A. IMPRESSION: 1. No acute osseous abnormality or radiopaque foreign body. 2. Bunion with 35 degree hallux valgus and mild cystic change at the medial hea d of the first metatarsal.
[2025-01-04 08:54] VITALS: BP 149/97; PULSE 77; RESP 14; TEMP 36.2; O2SAT 99
--- OUTSIDE RECORDS SUMMARY | 2025-01-04 08:54 | XMS_ITS | Patient Health Record ---
Author Organization [facility] As [employer] [facility] Address [address] [facility] [address] [place] [address] Care Team Providers Care Advanced Manufacturing Associate Name Role Phone Ivonne Bond Unavailable [phone] Reason For Referral No Information Plan Of Treatment No Information Insurance Providers Payer Name Payer Address Payer Phone Subscriber Number Group Number Insured Name Patient Relationship to Insured Coverage Start Date Coverage End Date [facility] [address] [place] [address] [id number] LINDA MUÑOZ Self - patient is the insured
--- OUTSIDE RECORDS SUMMARY | 2025-01-04 08:54 | XMS_ITS | Clinical Summary ---
Author Organization [facility] Address [address] [place] [address] Care Team Providers Care Service Dog Trainer Name Role Phone Soco Renteria MD Primary Care Provider + Source Comments [facility] [employer],non-owned Affiliates and Associated Physician Practices is amultiple site organization consisting of ambulatory clinics and hospital sitesin [place], [place], [place] and [place]. This disclosure is being madepursuant to the Care Everywhere program and may not contain all information available regarding this patient. Last updated 18.[facility] [employer] Allergies No known active allergies Medications * [...] on file Legal Sex Female 3:19 PM CONTRACT ASSOCIATE Gender Identity Not on file Sexual Orientation Not on file Last Filed Vital Signs Vital Sign Reading Time Taken Comments Blood Pressure 128/86 06/20/2017 10:14 AM CONTRACT ASSOCIATE Pulse 86 06/20/2017 10:14 AM CONTRACT ASSOCIATE Temperature 37.2 C (99 F) 06/20/2017 10:14 AM CONTRACT ASSOCIATE Respiratory Rate 16 06/20/2017 10:14 AM CONTRACT ASSOCIATE Oxygen Saturation 99% 06/20/2017 10:14 AM CONTRACT ASSOCIATE Inhaled Oxygen Concentration - - Weight 82.6 kg (182 lb) 06/20/2017 10:14 AM CONTRACT ASSOCIATE Height 162.6 cm (5' 4) 06/20/2017 10:14 AM CONTRACT ASSOCIATE Body Mass Index 31.24 06/20/2017 10:14 AM CONTRACT ASSOCIATE Plan of Treatment Health Maintenance Due Date [...] complete this topic Insurance IVAN Care Teams Service Dog Trainer Relationship Specialty Start Date End Date Soco Renteria MD [address] [facility] [address] [place] [address] PCP - General Family Medicine 06/20/17
--- NOTE | 2025-01-04 09:39 | ED.LOWEXIN ---
HPI - Extremity Injury (Lower) General Chief Complaint: Extremity Injury, Lower Stated Complaint: right foot injury Time Seen by Provider: 01/04/25 09:03 Source: patient Mode of arrival: ambulatory Limitations: no limitations History of Present Illness HPI Narrative: Patient is a 44-year-old female who presents the ED with report of right foot pain. Patient reports she was trying on shoes at a shoe store 3 weeks ago when she stepped on a safety pin with her bare R foot. States she had a wound to her plantar arch region. Has been having intermittent pain in her R foot for the past 3 weeks since then. Has been taking pain medication at home w/o improvement. States she was told to come get evaluated by the shoe store. Denies numbness, redness, fevers. Related Data Home Medications ?Medication ?Instructions ?Recorded ?Confirmed ?Last Taken ?Type pantoprazole 40 mg tablet,delayed 40 mg PO QAM 05/31/19 Unknown History release Allergies Allergy/AdvReac Type Severity Reaction Status Date / Time No Known Allergies Allergy Verified 07/20/19 14:30 Review of Systems Review of Systems: All systems reviewed & are unremarkable except as noted in HPI. All systems reviewed & are unremarkable except as noted in HPI and below PMFSH Family History Family History Mother Hypertension Patient's mother is in good health Father Patient's father is in good health Hypertension Family history of alcoholism Social History Social History Smoking status: Light tobacco smoker Tobacco type: cigarettes Second hand tobacco smoke exposure: No Alcohol intake: current Drinks per week: 3 Substance use: never Substance use type: does not use Living arrangements: with family Occupation/Education: occupation Gender identity (if verbalized by the patient): Female Exam Narrative: GENERAL: Well appearing, obese with BMI of 34.5, non-toxic, in no acute distress. HEAD: Normocephalic, atraumatic. RESPIRATORY: Airway patent, respirations nonlabored. CARDIOVASCULAR: Regular rate and rhythm. Pedal pulses intact. MUSCULOSKELETAL: Moves all extremities. No gross deformities. Minimal tenderness and plantar R foot in arch region/midfoot. No foreign body. No redness, warmth, fluctuance. SKIN: Warm, dry, normal color. NEURO: A&O X3. Speech clear. Steady gait. No ataxic movements. PSYCHIATRIC: Appropriate mood and affect. Normal interaction. Course Vital Signs Vital signs: Vital Signs Temperature 97.2 F L 01/04/25 08:54 Pulse Rate 77 01/04/25 08:54 Respiratory Rate 14 01/04/25 08:54 Blood Pressure 149/97 H 01/04/25 08:54 Pulse Oximetry 99 01/04/25 08:54 Temperature 97.2 F L 01/04/25 08:54 Pulse Rate 77 01/04/25 08:54 Respiratory Rate 14 01/04/25 08:54 Blood Pressure 149/97 H 01/04/25 08:54 Pulse Oximetry 99 01/04/25 08:54 MDM - Extremity Injury (Lower) MDM Narrative Medical decision making narrative: Patient?s injury is consistent with musculoskeletal etiology. No signs of neurologic or vascular compromise on physical examination. Compartments are soft without signs of compartment syndrome. No evidence of cellulitis or infection related to puncture wound. XR right foot negative, no FB or fx, does show bunion. Patient w/o pain/tenderness to 1st toe MTP. Pain is consistent with foot strain. Patient is felt to be stable for discharge home and further outpatient management and treatment. Given Patrice bandage. Advised to continue Tylenol/ibuprofen. Given return precautions. Medical Records Attestation: I reviewed the patient's medical records. Imaging Data Attestation: I personally reviewed and interpreted this imaging study as follows: Radiologist's impression: ITS Impressions Foot X-Ray 01/04/25 09:47 IMPRESSION: 1. No acute osseous abnormality or radiopaque foreign body. 2. Bunion with 35 degree hallux valgus and mild cystic change at the medial head of the first metatarsal. Discharge Plan Discharge Clinical Impression: Strain of right foot Qualifiers: Encounter type: initial encounter Qualified Code(s): S96.911A - Strain of unspecified muscle and tendon at ankle and foot level, right foot, initial encounter Patient Disposition: Home Condition: Stable Instructions: Antibiotic Form, Puncture Wound (ED), Foot Sprain (ED) Additional Instructions: Utilize Patrice bandage for compression and support as needed. Continue Tylenol/ibuprofen as needed for pain. Follow-up with your primary care doctor for further evaluation. Return to ED for new or worsening concerns. Patient Language: Bahamian Prescriptions: No Action citalopram 10 mg tablet 10 mg PO DAILY Qty: 30 4RF cetirizine 10 mg tablet 10 mg PO DAILY PRN (Reason: allergy symptoms) Qty: 30 1RF pantoprazole 40 mg tablet,delayed release (DR/EC) 40 mg PO QAM hydrochlorothiazide 12.5 mg tablet 12.5 mg PO DAILY Qty: 30 0RF ergocalciferol (vitamin D2) 1,250 mcg (50,000 unit) capsule 1,250 mcg PO WEEKLY Qty: 14 0RF Follow-up/Referrals: Dwain,Dutch Valentine MD [Primary Care Provider] Time of Disposition: 10:07
[2025-01-04] MEDS: IBUPROFEN 600 MG TABLET PO (09:44)
--- OUTSIDE RECORDS SUMMARY | 2025-01-04 09:47 | XMS_ITS | Clinical Summary ---
Author Organization [facility] Address [address] [place] [address] Care Team Providers Care Girls Tennis Coach Name Role Phone Soco Renteria MD Primary Care Provider + Source Comments [facility],non-owned Affiliates and Associated Physician Practices is amultiple site organization consisting of ambulatory clinics and hospital sitesin [place], [place], [place] and [place]. This disclosure is being madepursuant to the Care Everywhere program and may not contain all information available regarding this patient. Last updated 18.[facility] Allergies No known active allergies Medications * [...] on file Legal Sex Female 3:19 PM [employer] Gender Identity Not on file Sexual Orientation Not on file Last Filed Vital Signs Vital Sign Reading Time Taken Comments Blood Pressure 128/86 06/20/2017 10:14 AM [employer] Pulse 86 06/20/2017 10:14 AM [employer] Temperature 37.2 C (99 F) 06/20/2017 10:14 AM [employer] Respiratory Rate 16 06/20/2017 10:14 AM [employer] Oxygen Saturation 99% 06/20/2017 10:14 AM [employer] Inhaled Oxygen Concentration - - Weight 82.6 kg (182 lb) 06/20/2017 10:14 AM [employer] Height 162.6 cm (5' 4) 06/20/2017 10:14 AM [employer] Body Mass Index 31.24 06/20/2017 10:14 AM [employer] Plan of Treatment Health Maintenance Due Date [...] complete this topic Insurance [employer] Care Teams Girls Tennis Coach Relationship Specialty Start Date End Date Soco Renteria MD [address] [place] [address] PCP - General Family Medicine 06/20/17
== END 2025-01-04 10:08 | disposition home or self-care (01) ==
PROVIDERS: Emergency Provider Physician Assistant; PCP Internal Medicine Gastroenterology
DX: S96.911A Strain of unspecified muscle and tendon at ankle and foot level, right foot, initial encounter (principal); E66.9 Obesity, unspecified; Z68.34 Body mass index [BMI] 34.0-34.9, adult; F17.210 Nicotine dependence, cigarettes, uncomplicated; M21.611 Bunion of right foot; M20.11 Hallux valgus (acquired), right foot; W26.8XXA Contact with other sharp object(s), not elsewhere classified, initial encounter
CPT/HCPCS: 73630; 99283; A9270